=== PATIENT | female | born 1970 | race Caucasian/White ===

== ENCOUNTER 2016-11-23 14:30 | Emergency (ER) | payer BC, OTHER ==
--- NOTE | 2016-11-23 14:54 | ER Document Report ---
ED Medical Screen (RME) - General Stated Complaint: DIZZINESS Time seen by provider: 14:52 Mode of Arrival: Ambulatory Information source: Patient Notes: 46-year-old female woke up at 7:00 this morning when she got out of bed she had sudden onset of vertigo that caused her to fall forward and hit the bridge of for joint nose. She continues to have vertigo today. She has not been sick recently. Hysterectomy. No headache. Dry heaving and vomiting since noon. No diarrhea. TRAVEL OUTSIDE OF THE [place] IN LAST 30 DAYS: No Physical Exam - Vital signs Vitals: Temp Pulse Resp BP Pulse Ox 97.4 F 95 18 145/92 H 100 11/23/16 14:34 11/23/16 14:34 11/23/16 14:34 11/23/16 14:34 11/23/16 14:34 Course - Vital Signs Vital signs: Temp Pulse Resp BP Pulse Ox 97.4 F 95 18 145/92 H 100 11/23/16 14:34 11/23/16 14:34 11/23/16 14:34 11/23/16 14:34 11/23/16 14:34
[2016-11-23] MEDS ORDERED: MECLIZINE HCL 25 MG TABLET PO ONE (14:59)
[2016-11-23] MEDS ORDERED: NORMAL SALINE 1000 ML 1,000 ML IV ONE (18:30)
[2016-11-23] MEDS ORDERED: DIAZEPAM 5 MG TABLET PO ONE (18:31)
[2016-11-23] MEDS ORDERED: ONDANSETRON HCL INJ/PF 4 MG/2 ML SDV IV ONE (18:31)
--- NOTE | 2016-11-23 18:32 | ER Document Report ---
ED Dizziness/Weakness - General Chief Complaint: Dizziness Stated Complaint: DIZZINESS Mode of Arrival: Ambulatory Information source: Patient Notes: This is a 46-year-old female with a past medical history significant for asthma who presents with dizziness and vertigo for one day. She states that her symptoms began at 7 AM this morning when she got out of bed. She felt so dizzy that she actually did fall in the bathroom and has a small laceration to the bridge of her nose. She has no loss of consciousness. She has fallen again today. She continues to have persistent vertigo with position change along with nausea vomiting. This has never happened to her before. She denies any recent illnesses or fevers. She otherwise feels well. TRAVEL OUTSIDE OF THE [place] IN LAST 30 DAYS: No - Related Data Allergies/Adverse Reactions: codeine Allergy (Verified 11/23/16 14:59) erythromycin base Allergy (Verified 11/23/16 14:59) Past Medical History - General Information source: Patient - Social History Smoking Status: Former Smoker Chew tobacco use (# tins/day): No Frequency of alcohol use: None Drug Abuse: None Family History: Reviewed & Not Pertinent Patient has suicidal ideation: No Patient has homicidal ideation: No Pulmonary Medical History: Reports: Hx Asthma Renal/ Medical History: Denies: Hx Peritoneal Dialysis Past Surgical History: Reports: Hx Appendectomy, Hx Section, Hx Tonsillectomy Review of Systems - Review of Systems Notes: REVIEW OF SYSTEMS: CONSTITUTIONAL : Denies fever, chills, or sweats. Denies recent illness. EENT: Denies eye, ear, throat, or mouth pain or symptoms. Denies nasal or sinus congestion. CARDIOVASCULAR: Denies chest pain. RESPIRATORY: Denies cough, cold, or chest congestion. Denies shortness of breath, difficulty breathing, or wheezing. GASTROINTESTINAL: Denies abdominal pain. GENITOURINARY: Denies difficulty urinating, painful urination, burning, frequency, or blood in urine. MUSCULOSKELETAL: Denies neck or back pain or joint pain or swelling. SKIN: Denies rash or skin lesions. HEMATOLOGIC : Denies easy bruising or bleeding. LYMPHATIC: Denies swollen, enlarged glands. NEUROLOGICAL: As per history of present illness. Denies headache. Denies weakness or paralysis or loss of use of either side. Denies sensory or motor loss. PSYCHIATRIC: Denies anxiety or stress or depression. ALL OTHER SYSTEMS REVIEWED AND NEGATIVE. Physical Exam - Vital signs Vitals: Temp Pulse Resp BP Pulse Ox 97.4 F 95 18 145/92 H 100 11/23/16 14:34 11/23/16 14:34 11/23/16 14:34 11/23/16 14:34 11/23/16 14:34 - Notes Notes: PHYSICAL EXAMINATION: GENERAL: Well-appearing, well-nourished and in no acute distress. Pleasant and conversant. HEAD: Atraumatic, normocephalic. EYES: Pupils equal round and reactive to light, extraocular movements intact, sclera anicteric, conjunctiva are normal. No nystagmus noted. ENT: nares patent, oropharynx clear without exudates. Moist mucous membranes. NECK: Normal range of motion, supple without lymphadenopathy LUNGS: Breath sounds clear to auscultation bilaterally and equal. No wheezes rales or rhonchi. HEART: Regular rate and rhythm without murmurs ABDOMEN: Soft, nontender, normoactive bowel sounds. No guarding, no rebound. No masses appreciated. EXTREMITIES: Normal range of motion, no pitting or edema. No cyanosis. NEUROLOGICAL: Cranial nerves grossly intact. Normal speech. Motor strength is 5/5 bilateral upper and lower extremities. Sensation intact. Finger to nose intact. PSYCH: Normal mood, normal affect. SKIN: Warm, Dry, normal turgor, no rashes or lesions noted. Course - Re-evaluation Re-evalutation: 11/23/16 21:29 Patient states that she is feeling somewhat better after the by mouth Valium. Her neuro exam he continues to be intact and nonfocal. She was noted to be able to ambulate to the bathroom and back without difficulty. He has not vomited in the emergency department. Her labs and CT are reassuring. We discussed benign positional vertigo and treatments. She will follow-up with her primary care physician this week and strict return precautions were discussed. She and her are very comfortable with the plan and all questions were answered. - Vital Signs Vital signs: Temp Pulse Resp BP Pulse Ox 98.2 F 72 16 136/75 H 98 11/23/16 22:32 11/23/16 22:32 11/23/16 22:32 11/23/16 22:32 11/23/16 22:32 - Laboratory Result Diagrams: 11/23/16 19:15 11/23/16 19:15 Laboratory results interpreted by me: 11/23/16 11/23/16 19:15 19:15 RDW 14.1 H Calcium 10.3 H Discharge - Discharge Clinical Impression: Vertigo Clinical Impression: (Ruled Out): Benign paroxysmal positional vertigo Condition: Stable Disposition: HOME, SELF-CARE Additional Instructions: Vertigo You have experienced an episode of vertigo -- a whirling dizziness which may be accompanied by nausea and vomiting or staggering. Vertigo is often caused by an irritation of the inner ear, in which case it is called labyrinthitis. It can also be a symptom of a degenerating inner ear, nerve damage, or brain injury. Your physician has evaluated you to determine whether any further testing is necessary. Vertigo is often treated with dramamine or meclizine. These medications are helpful, but stronger medication may be needed if you are vomiting. Rest in bed. You should not drive or operate machinery until completely better. It may take one to three weeks for recovery. If there are new symptoms, such as decreased hearing or vision, severe headache, weakness or faintness, or confusion, call the physician. As instructed and discussed, follow-up with her primary care physician this week. Return to the ER for any worsening symptoms or concerns specifically fever, severe headache, or worsening problems. Prescriptions: Diazepam [Valium 5 mg Tablet] 5 mg PO BID #8 tablet Meclizine HCl 25 mg PO TID PRN #20 tablet PRN Reason: vertigo Ondansetron [Zofran Odt 4 mg Tablet] 1 tab PO Q4H PRN #15 tab.rapdis PRN Reason: For Nausea/Vomiting Forms: Elevated Blood Pressure Referrals: JOYCE CASTILLO MD [Primary Care Provider] - Follow up in 3-5 days
[2016-11-23 19:24] LABS: ABSOLUTE EOSINOPHILS # (AUTO) 0.1 10^3/uL (0.0-0.6); ABSOLUTE LYMPHOCYTES (AUTO) 1.8 10^3/uL (0.5-4.7); ABSOLUTE MONOCYTES (AUTO) 0.6 10^3/uL (0.1-1.4); ABSOLUTE NEUT (AUTO) 7.5 10^3/uL (1.7-8.2); BASOPHILS % (AUTO) 0.5 % (0-2); EOSINOPHILS % (AUTO) 0.5 % (0-6); HEMATOCRIT 43.9 % (36.0-47.0); HEMOGLOBIN 14.7 g/dL (12.0-15.5); HGB HCT DIFFERENCE 0.2; LYMPHOCYTES % (AUTO) 17.5 % (13-45); MEAN CORPUSCULAR HEMOGLOBIN 29.2 pg (27.0-33.4); MEAN CORPUSCULAR HGB CONC 33.5 g/dL (32.0-36.0); MEAN CORPUSCULAR VOLUME 87 fl (80-97); MONOCYTES % (AUTO) 6.2 % (3-13); RED BLOOD COUNT 5.03 10^6/uL (3.72-5.28); RED CELL DISTRIBUTION WIDTH 14.1 % (11.5-14.0); SEGMENTED NEUTROPHILS % (AUTO) 75.3 % (42-78)
[2016-11-23 19:39] LABS: ALANINE AMINOTRANSFERASE 31 U/L (9-52); ALBUMIN 4.6 g/dL (3.5-5.0); ALKALINE PHOSPHATASE 110 U/L (38-126); ANION GAP 10 (5-19); ASPARTATE AMINO TRANSFERASE 36 U/L (14-36); BILIRUBIN,TOTAL 0.7 mg/dL (0.2-1.3); BLOOD UREA NITROGEN 15 mg/dL (7-20); CALCIUM 10.3 mg/dL (8.4-10.2); CARBON DIOXIDE 29 mmol/L (22-30); CHLORIDE 105 mmol/L (98-107); CREATININE RESULT 0.57 mg/dL (0.52-1.25); GLUCOSE 105 mg/dL (75-110); POTASSIUM 4.2 mmol/L (3.6-5.0); SODIUM 143.8 mmol/L (137-145); TOTAL PROTEIN 7.9 g/dL (6.3-8.2)
[2016-11-23 22:34] VITALS: BP 136/75
--- NOTE | 2016-11-23 22:44 | EKG REPORT ---
SEVERITY:- NORMAL ECG - SINUS RHYTHM : Confirmed by: Reagan Mei 23-Nov-2016 22:43:51
== END 2016-11-23 22:36 | disposition home or self-care (01) ==
LOC: ER 14:30
DX: S01.21XA Laceration without foreign body of nose, initial encounter (principal); W19.XXXA Unspecified fall, initial encounter; Y93.89 Activity, other specified; R42 Dizziness and giddiness; R11.2 Nausea with vomiting, unspecified; J45.909 Unspecified asthma, uncomplicated; Z88.5 Allergy status to narcotic agent; Z88.1 Allergy status to other antibiotic agents; Z87.891 Personal history of nicotine dependence
CPT/HCPCS: 93005; 99284; 96374; 36415; 85025; 80053; 70450; 93010; J2405; J7030

== ENCOUNTER 2017-05-16 15:49 | Observation (INO) | payer BC ==
[~2017-05-16 15:49] MED LIST: DEXAMETHASONE SOD PHOSPHATE INJ 4 MG/1 ML VIAL ONE; GLYCOPYRROLATE INJ 0.4 MG/2 ML VIAL ONE; NEOSTIGMINE METHYLSULFATE 10 MG/10 ML VIAL ONE; ONDANSETRON HCL INJ/PF 4 MG/2 ML SDV ONE; SUCCINYLCHOLINE CHLORIDE INJ 200 MG/10 ML VIAL ONE; VECURONIUM BROMIDE INJ 10 MG VIAL IV ONE
[2017-05-16] MEDS ORDERED: ASPIRIN 81 MG TABLET, CHEWABLE PO ONE (16:33)
--- NOTE | 2017-05-16 16:34 | ER Document Report ---
ED Medical Screen (RME) - General Chief Complaint: Chest Pain Stated Complaint: CHEST PAIN Time Seen by Provider: 05/16/17 16:32 Notes: Patient presents with substernal chest pain. It is been present intermittently for approximately 3 days. She states she is currently having pain. She denies any previous history of coronary artery disease. No previous evaluation such as stress test or heart catheterizations. No history of blood clots. No hormone use. Patient denies tobacco use. No cough cold or congestion. Patient denies shortness of breath. She has had some nausea. TRAVEL OUTSIDE OF THE [place] IN LAST 30 DAYS: No - Related Data Allergies/Adverse Reactions: codeine Allergy (Verified 05/16/17 16:12) erythromycin base Allergy (Verified 05/16/17 16:12) Home Medications: Current Home Medications Albuterol Sulfate [Ventolin Hfa] 2 puff IH DAILY 05/16/17 [History] Fluticasone/Vilanterol [Breo Ellipta 100-25 Mcg INH] 1 puff IH DAILY 05/16/17 [ History] Hydrochlorothiazide [Hydrochlorothiazide] 25 mg PO DAILY 05/16/17 [History] Meloxicam [Mobic 15 mg Tablet] 15 mg PO QID 05/16/17 [History] Naproxen [Naproxen] 500 mg PO DAILY PRN 05/16/17 [History] Phentermine HCl 37.5 mg PO QAM 05/16/17 [History] Past Medical History Pulmonary Medical History: Reports: Hx Asthma Renal/ Medical History: Denies: Hx Peritoneal Dialysis Past Surgical History: Reports: Hx Appendectomy, Hx Section, Hx Hysterectomy, Hx Tonsillectomy
[2017-05-16 17:19] LABS: ABSOLUTE EOSINOPHILS # (AUTO) 0.3 10^3/uL (0.0-0.6); ABSOLUTE NEUT (AUTO) 9.4 10^3/uL (1.7-8.2); BASOPHILS % (AUTO) 0.4 % (0-2); EOSINOPHILS % (AUTO) 2.1 % (0-6); HEMATOCRIT 44.4 % (36.0-47.0); HEMOGLOBIN 15.3 g/dL (12.0-15.5); HGB HCT DIFFERENCE 1.5; LYMPHOCYTES % (AUTO) 15.5 % (13-45); MEAN CORPUSCULAR HEMOGLOBIN 29.6 pg (27.0-33.4); MEAN CORPUSCULAR HGB CONC 34.4 g/dL (32.0-36.0); MEAN CORPUSCULAR VOLUME 86 fl (80-97); MONOCYTES % (AUTO) 7.6 % (3-13); RED BLOOD COUNT 5.17 10^6/uL (3.72-5.28); RED CELL DISTRIBUTION WIDTH 14.1 % (11.5-14.0); SEGMENTED NEUTROPHILS % (AUTO) 74.4 % (42-78); WHITE BLOOD COUNT 12.6 10^3/uL (4.0-10.5)
--- NOTE | 2017-05-16 17:52 | RADIOLOGY REPORT (SQ) ---
EXAM DESCRIPTION: CHEST PA/LAT COMPLETED DATE/TIME: 05/16/2017 5:05 pm REASON FOR STUDY: cp COMPARISON: 07/04/2015 EXAM PARAMETERS: NUMBER OF VIEWS: two views TECHNIQUE: Digital Frontal and Lateral radiographic views of the chest acquired. RADIATION DOSE: NA LIMITATIONS: none FINDINGS: LUNGS AND PLEURA: No opacities, masses or pneumothorax. No pleural effusion. MEDIASTINUM AND HILAR STRUCTURES: No masses or contour abnormalities. HEART AND VASCULAR STRUCTURES: Heart normal size. No evidence for failure. BONES: No acute findings. HARDWARE: None in the chest. OTHER: No other significant finding. IMPRESSION: NO SIGNIFICANT RADIOGRAPHIC FINDING IN THE CHEST. TECHNICAL DOCUMENTATION: JOB ID: [id number] [employer]- All Rights Reserved
[2017-05-16 18:30] LABS: BLOOD UREA NITROGEN 18 mg/dL (7-20); CALCIUM 9.8 mg/dL (8.4-10.2); GLUCOSE 122 mg/dL (75-110)
[2017-05-16 18:31] LABS: ALBUMIN 4.3 g/dL (3.5-5.0); ANION GAP 9 (5-19); CARBON DIOXIDE 28 mmol/L (22-30); CHLORIDE 101 mmol/L (98-107); POTASSIUM 3.6 mmol/L (3.6-5.0); SODIUM 138.2 mmol/L (137-145)
[2017-05-16 18:32] LABS: ALANINE AMINOTRANSFERASE 23 U/L (9-52); ALKALINE PHOSPHATASE 109 U/L (38-126); ASPARTATE AMINO TRANSFERASE 32 U/L (14-36); BILIRUBIN,DIRECT 0.5 mg/dL (0.0-0.4); BILIRUBIN,TOTAL 0.5 mg/dL (0.2-1.3)
[2017-05-16 18:33] LABS: TOTAL PROTEIN 7.4 g/dL (6.3-8.2)
[2017-05-16] MEDS ORDERED: NORMAL SALINE 1000 ML 1,000 ML IV PRN (18:51)
[2017-05-16] MEDS ORDERED: MORPHINE SULFATE 10 MG/ML INJ IV ONE (18:51)
[2017-05-16] MEDS ORDERED: ONDANSETRON HCL INJ/PF 4 MG/2 ML SDV IV ONE (18:51)
--- NOTE | 2017-05-16 20:46 | RADIOLOGY REPORT (SQ) ---
EXAM DESCRIPTION: U/S ABDOMEN LIMITED W/O DOP COMPLETED DATE/TIME: 05/16/2017 8:30 pm REASON FOR STUDY: pain COMPARISON: None. TECHNIQUE: Dynamic and static grayscale images acquired of the abdomen and recorded on PACS. Additio nal selected color Doppler and spectral images recorded. LIMITATIONS: None. FINDINGS: PANCREAS: No masses. Visualized pancreatic duct normal caliber. LIVER: No masses. Echotexture normal. LIVER VASCULATURE: Normal directional flow of the main portal vein and hepatic veins. GALLBLADDER: Extensive stones and sludge. Borderline thickening of the gallbladder wall. ULTRASOUND-DETECTED WAKEFIELD'S SIGN: Negative. INTRAHEPATIC DUCTS AND COMMON DUCT: CBD and intrahepatic ducts normal caliber. No filling defects. INFERIOR VENA CAVA: Normal flow. AORTA: No aneurysm. RIGHT KIDNEY: Normal size. Normal echogenicity. No solid or suspicious masses. No hydronephrosis. No calcifications. PERITONEAL AND RIGHT PLEURAL SPACE: No ascites or effusions. OTHER: No other significant findings. IMPRESSION: Extensive stones and sludge in the gallbladder. TECHNICAL DOCUMENTATION: JOB ID: [id number] [employer]- All Rights Reserved
[2017-05-16] MEDS ORDERED: ONDANSETRON HCL INJ/PF 4 MG/2 ML SDV IV PRN (20:47)
--- NOTE | 2017-05-16 21:26 | ER Document Report ---
ED GI/ - General Chief Complaint: Chest Pain Stated Complaint: CHEST PAIN Time Seen by Provider: 05/16/17 16:32 TRAVEL OUTSIDE OF THE [place] IN LAST 30 DAYS: No - HPI Patient complains to provider of: Abdominal pain Onset: Other - 2-3 days Timing/Duration: Persistent Quality of pain: Sharp Severity at maximum: Moderate Severity in ED: Moderate Pain Level: 4 Location: Epigastric, RUQ Associated symptoms: Nausea, Vomiting Exacerbated by: Denies Relieved by: Denies Similar symptoms previously: No Recently seen / treated by doctor: No Notes: 05/17/17 00:56 Patient is a 46-year-old female presenting to the emergency room complaining of 2 day history of chest pain, however when I ask her where the pain is she points to the epigastric area, 2 days ago she had nausea and vomiting and thought the pain was related to that, today she continues to have nausea but no vomiting, denies a fever, denies shortness of breath but does report feeling pain when she takes a deep breath - Related Data Allergies/Adverse Reactions: codeine Allergy (Verified 05/16/17 16:12) erythromycin base Allergy (Verified 05/16/17 16:12) Home Medications: Current Home Medications Albuterol Sulfate [Ventolin Hfa] 2 puff IH DAILY 05/16/17 [History] Fluticasone/Vilanterol [Breo Ellipta 100-25 Mcg INH] 1 puff IH DAILY 05/16/17 [ History] Hydrochlorothiazide [Hydrochlorothiazide] 25 mg PO DAILY 05/16/17 [History] Meloxicam [Mobic 15 mg Tablet] 15 mg PO QID 05/16/17 [History] Naproxen [Naproxen] 500 mg PO DAILY PRN 05/16/17 [History] Phentermine HCl 37.5 mg PO QAM 05/16/17 [History] Past Medical History - General Information source: Patient - Social History Smoking Status: Never Smoker Frequency of alcohol use: Occasional Family History: Reviewed & Not Pertinent - Past Medical History Cardiac Medical History: Reports: Hx Hypertension Pulmonary Medical History: Reports: Hx Asthma Renal/ Medical History: Denies: Hx Peritoneal Dialysis Past Surgical History: Reports: Hx Appendectomy, Hx Section, Hx Hysterectomy, Hx Tonsillectomy Review of Systems - Review of Systems Constitutional: No symptoms reported EENT: No symptoms reported Cardiovascular: No symptoms reported Respiratory: No symptoms reported Gastrointestinal: See HPI Genitourinary: No symptoms reported Female Genitourinary: No symptoms reported Musculoskeletal: No symptoms reported Skin: No symptoms reported Hematologic/Lymphatic: No symptoms reported Neurological/Psychological: No symptoms reported -: Yes All other systems reviewed and negative Physical Exam - Vital signs Vitals: Temp Pulse Resp BP Pulse Ox 97.8 F 92 16 99/68 L 98 05/16/17 20:57 05/16/17 20:57 05/16/17 20:57 05/16/17 20:57 05/16/17 20:57 Interpretation: Normal - General General appearance: Appears well, Alert - HEENT Head: Normocephalic, Atraumatic Eyes: Normal Pupils: PERRL - Respiratory Respiratory status: No respiratory distress Chest status: Nontender Breath sounds: Normal Chest palpation: Normal - Cardiovascular Rhythm: Regular Heart sounds: Normal auscultation Murmur: No - Abdominal Inspection: Obese Distension: No distension Bowel sounds: Normal Tenderness: Tender - Right upper quadrant Organomegaly: No organomegaly - Back Back: Normal, Nontender - Extremities General upper extremity: Normal inspection, Nontender, Normal color, Normal ROM , Normal temperature General lower extremity: Normal inspection, Nontender, Normal color, Normal ROM , Normal temperature, Normal weight bearing. No: Chas's sign - Neurological Neuro grossly intact: Yes Cognition: Normal Orientation: AAOx4 Laurie Coma Scale Eye Opening: Spontaneous Laurie Coma Scale Verbal: Oriented [place] Coma Scale Motor: Obeys Commands Laurie Coma Scale Total: 15 Speech: Normal Motor strength normal: LUE, RUE, LLE, RLE Sensory: Normal - Psychological Associated symptoms: Normal affect, Normal mood - Skin Skin Temperature: Warm Skin Moisture: Dry Skin Color: Normal Course - Re-evaluation Re-evalutation: 05/17/17 00:57 Patient symptoms are consistent with likely biliary colic, she has mild leukocytosis and ultrasound shows extensive gallstones, patient was discussed with the surgical list who agrees to admit for further evaluation and treatment - Vital Signs Vital signs: Temp Pulse Resp BP Pulse Ox 97.3 F 89 15 139/84 H 99 05/16/17 22:44 05/16/17 22:44 05/16/17 22:44 05/16/17 22:44 05/16/17 22:44 - Laboratory Result Diagrams: 05/16/17 16:58 05/16/17 17:52 Laboratory results interpreted by me: 05/16/17 05/16/17 16:58 17:52 WBC 12.6 H RDW 14.1 H Absolute Neutrophils 9.4 H Glucose 122 H Direct Bilirubin 0.5 H - Diagnostic Test Radiology reviewed: Image reviewed, Reports reviewed - EKG Interpretation by Me EKG shows normal: Sinus rhythm Rate: Tachycardia Discharge - Discharge Clinical Impression: Gallstones Condition: Stable Disposition: ADMITTED INPATIENT Admitting Provider: Surgicalist Unit Admitted: Surgical Floor
[2017-05-16] MEDS ORDERED: LORAZEPAM INJ 2 MG/1 ML VIAL IV ONE (22:03)
--- NOTE | 2017-05-16 23:17 | EKG REPORT ---
SEVERITY:- BORDERLINE ECG - SINUS TACHYCARDIA PROBABLE LEFT ATRIAL ABNORMALITY BORDERLINE LEFT AXIS DEVIATION : Confirmed by: Reagan Mei 16-May-2017 23:17:10
[2017-05-16] MEDS: HYDROMORPHONE HCL INJ/PF 2 MG/ML AMPULE IV PRN (23:30)
--- NOTE | 2017-05-17 00:17 | HISTORY AND PHYSICAL E ---
History and Physical NAME: PETER SWARTZ : 1970 AGE: 46Y ADMITTED: 05/16/2017 ROOM: 425 REASON FOR ADMISSION: Suspected biliary colic secondary to cholelithiasis with pending ultrasound. HISTORY OF PRESENT ILLNESS: This 46-year-old female presented to the emergency room complaining of a 3 days history of right upper quadrant and epigastric and substernal pain that actually worsened yesterday after eating a jalapeno. The patient states that the pain began approximately 3 days but was not very intense until last night when it became 8-9/10 in intensity. The patient states that the pain had gotten so intense that it made her sick, but she had some nausea but no vomiting. The patient denies any fever or chills. The patient states that approximately around 04/28, she had similar symptoms but when seen by primary care physician she told her it was chest wall related. The patient came to our emergency room today complaining of this pain which is 8-9/10 in intensity with radiation to her upper mid back. The patient denies any choluria, acholic stools, or jaundice and upon being seen by the emergency room provider, Dr. Cristela Navarrete it was thought that this represented biliary colic. The patient is now undergoing ultrasound of the gallbladder. PAST MEDICAL HISTORY: The patient has a history of asthma and is on albuterol sulfate 2 puffs daily and she is on fluticasone, vilanterol 1 puff daily. The patient is also on hydrochlorothiazide 25 mg p.o. daily, meloxicam 15 mg p.o. q.i.d., naproxen 500 mg p.o. daily, and phentermine hydrochloride 37.5 mg p.o. q.a.m. for weight loss. PAST SURGICAL HISTORY: The patient had apparently, section, hysterectomy, and history of tonsillectomy. ALLERGIES: The patient is allergic to CODEINE and ERYTHROMYCIN BASE. REVIEW OF SYSTEMS: The patient has no symptoms referable to the ear, nose and throat, cardiovascular, genitourinary, musculoskeletal, integumentary, lymphatic, endocrine. No psychiatric systems. Gastrointestinal symptoms as in the History of Present Illness. Pulmonary problems as in the History of the Present Illness. PHYSICAL EXAMINATION: GENERAL: Reveals a 46-year-old female who is normally nourished, normally developed, moderately obese at BMI of 45, who is in mild distress. VITAL SIGNS: Are noted and stable. HEENT: There is no conjunctival pallor or scleral icterus. Mucous membranes are moist and pink. NECK: Supple without nodes, masses, thyroid, JVD, or bruits and trachea is midline. CHEST WALL: Shows good excursions. The lungs are clear anteriorly with good entry bilaterally. CARDIOVASCULAR: S1 and S2 are audible without murmurs or gallops. ABDOMEN: Obese, soft with epigastric and right upper quadrant tenderness with mild guarding. There is negative Sandra's sign. There are no hernias or bruits noted. No incisions are noted. There are no hernias. EXTREMITIES: Show full range of motion. LABORATORY DATA: Is reviewed. Her white count is 12.6 mildly elevated, hemoglobin and hematocrit are within normal limits. The patient's liver function studies are essentially within normal limits. IMAGING STUDIES: Ultrasound is pending. IMPRESSION: Abdominal pain, suspected to be biliary colic. PLAN: Ultrasound is presently being done. Should this be negative then the patient will be scheduled for a HIDA scan with CCK stimulation. DICTATING PHYSICIAN: SINAN TONEY M.D. [id number] PHY#: [id number] ID: [id number] JOB#: [id number] ACCT: [id number] cc:SINAN TONEY M.D. >
[2017-05-17] MEDS: HYDROMORPHONE HCL INJ/PF 2 MG/ML AMPULE IV PRN (02:56)
[2017-05-17] MEDS ORDERED: BUPIVACAINE HCL 0.5 % INJ/PF 30 ML SDV ONE (08:00)
[2017-05-17] MEDS: NORMAL SALINE 1000 ML 1,000 ML IV PRN ×2 (08:31→16:10)
[2017-05-17] MEDS ORDERED: CEFAZOLIN INJ 1 GM VIAL ONE (09:55)
[2017-05-17] MEDS ORDERED: ENOXAPARIN SODIUM INJ 40 MG/0.4 ML DISP.SYRIN SUBCUT SCH (10:00)
[2017-05-17] MEDS ORDERED: ALBUTEROL SULFATE HFA (90 MCG/PUFF) 8 GM MDI (1 MDI/ER DISP) IH SCH (10:00)
[2017-05-17] MEDS ORDERED: (PENDING PHARMACY ID) (Fluticasone/Vilanterol [Breo Ellipta 100-25 Mcg Inh] 1 PUFF) IH SCH (10:00)
[2017-05-17] MEDS ORDERED: FENTANYL CITRATE INJ/PF 100 MCG/2 ML AMPUL ONE (10:10)
[2017-05-17] MEDS ORDERED: FENTANYL CITRATE INJ/PF 250 MCG/5 ML AMPULE ONE (10:10)
[2017-05-17] MEDS ORDERED: PROPOFOL INJ 200 MG/20 ML VIAL IV ONE (10:11)
[2017-05-17] MEDS ORDERED: MIDAZOLAM 2 MG/2 ML INJ ONE (10:11)
[2017-05-17] MEDS ORDERED: ACETAMINOPHEN 100 ML IV ONE (10:11)
[2017-05-17] MEDS ORDERED: MORPHINE SULFATE 10 MG/ML INJ IV PRN ×2 (11:12→12:12)
[2017-05-17] MEDS ORDERED: PROMETHAZINE HCL INJ 25 MG/1 ML VIAL IV PRN (11:12)
[2017-05-17] MEDS ORDERED: DIPHENHYDRAMINE HCL 50 MG/ML VIAL IV PRN (11:12)
[2017-05-17] MEDS ORDERED: FENTANYL CITRATE INJ/PF 100 MCG/2 ML AMPUL IV PRN ×3 (11:12)
[2017-05-17] MEDS ORDERED: ONDANSETRON HCL INJ/PF 4 MG/2 ML SDV IV PRN (12:12)
--- NOTE | 2017-05-17 12:12 | Brief Operative Note ---
BRIEF OPERATIVE REPORT DATE OF SURGERY: 05/17/17 TIME OF SURGERY: 11:00 PREOPERATIVE DIAGNOSIS: Cholelithiasis with biliary colic POSTOPERATIVE DIAGNOSIS: Same plus chronic cholecystitis SURGEON: SINAN TONEY FINDINGS: Cholelithiasis with chronic cholecystitis COMPLICATIONS: None ESTIMATED BLOOD LOSS: 50 cc TISSUE REMOVED OR ALTERED: Gallbladder and contents TECHNICAL PROCEDURE: See Dictation
[2017-05-17] MEDS ORDERED: OXYCODONE-ACETAMINOPHEN 5-325 MG TABLET PO PRN (12:17)
--- NOTE | 2017-05-17 12:42 | OPERATIVE REPORT E ---
Operative Report NAME: PETER SWARTZ : 1970 AGE: 46Y DATE OF SURGERY: 05/17/2017 ROOM: 425 PREOPERATIVE DIAGNOSES: 1. Cholelithiasis. 2. Biliary colic. POSTOPERATIVE DIAGNOSES: 1. Cholelithiasis. 2. Biliary colic. 3. Chronic cholecystitis. PROCEDURE: Laparoscopic cholecystectomy. SURGEON: SINAN TONEY M.D. ANESTHESIA: General. REPLACEMENT: Crystalloids. DRAINS: None. COMPLICATIONS: None. CONDITION: Stable. INDICATIONS FOR PROCEDURE: This 46-year-old female presented to the emergency room on 05/16/2017 complaining of a several hour attack of biliary colic that had lasted approximately 5-7 hours. Patient complained of significant epigastric, substernal, and right upper quadrant pain radiating to the back with nausea without vomiting. Patient's symptoms go back to approximately 2 weeks ago when she had her first attack. Ultrasound revealed cholelithiasis with sludge and multiple gallstones. The patient is brought to the operating room now for definitive intervention. DESCRIPTION OF PROCEDURE: The patient was brought to the operating room suite and placed in the supine position on the operating room table. Monitoring devices were attached. IV sedation was administered followed by the induction of general endotracheal anesthesia. Patient's abdomen was prepped and draped in usual sterile manner and then a timeout was achieved. After all concurred, local anesthesia, which was Marcaine 0.5% with epinephrine was injected just below the umbilicus and then a curvilinear incision was made just below the umbilicus through skin and subcutaneous tissue down to the linea alba. Two 0 Vicryl stay sutures were placed in the linea alba and then an incision was made between the 2 stay sutures. We then, after opening the linea alba, grasped the peritoneum with 2 hemostats and an incision was made between the 2 hemostats thereby making an opening into the peritoneal cavity. Additional exploration was done to ensure there were no viscera adherent to the anterior abdominal wall. We then instilled our 10 mm Venancio trocar and secured it with the two 0 Vicryl stay sutures. We then insufflated the abdomen with CO2 and then inserted our laparoscopic camera and light source. The remaining 3 trocars were placed in the usual anatomic position. It should be noted that the gallbladder was markedly distended and tense. There also were adhesions between the liver and the anterior abdominal wall or possibly secondary to Chris-Jeremy adhesions. We took down the adhesions between the liver and the anterior abdominal wall and then we decompressed the gallbladder, suctioning out approximately 75 feet of dark, thickened bile. After decompression of the gallbladder, we grasped the fundus of the gallbladder and retracted it superiorly over the liver. We then took down the adhesions between the omentum and the gallbladder and dissected there to the lower infundibulum until we identified the cystic duct. Using blunt and sharp dissection, we exposed, skeletonized, and isolated the cystic duct and this was then Hemoclipped close to the gallbladder and divided. We then identified the cystic artery and this was skeletonized and isolated and this was doubly Hemoclipped and divided between Hemoclips. We then dissected the gallbladder off the liver using the *------* scissors and cautery and hemostasis was accomplished using the cautery. Once the gallbladder was disconnected from the liver, it was placed in the Endobag and removed from the abdominal cavity. We then placed Surgicel in the gallbladder bed for the oozing of blood, which was minimal. After showing adequate hemostasis, we then placed our 0 Vicryl tie at the 10 mm trocar site in the upper abdomen using the Guero-Patel device, and once the 2 sutures were used to close the defect successfully, we then removed all trocars under direct vision and decompressed the abdomen. The infraumbilical trocar site was approximated using 0 Vicryl on a *------* needle in a continuous manner, and once all fascial defects were closed, all skin incisions were then closed using skin qian. The patient tolerated the procedure well. Sponge and instrument count was correct and patient was discharged to the PACU in stable condition. DICTATING PHYSICIAN: SINAN TONEY M.D. [id number] PHY#: [id number] ID: [id number] JOB#: [id number] ACCT: [id number] cc:SINAN TONEY M.D. >
[2017-05-18 08:20] VITALS: BP 135/79
--- NOTE | 2017-05-18 15:30 | DISCHARGE SUMMARY E ---
Discharge Summary NAME: PETER SWARTZ : 1970 AGE: 46Y ADMITTED: 05/16/2017 DISCHARGED: 05/18/2017 DISCHARGE DIAGNOSIS: Status post laparoscopic cholecystectomy for cholelithiasis with biliary colic and chronic cholecystitis. HOSPITAL COURSE: This 46-year-old female was admitted to the hospital on 05/16/2017 complaining of a several-hour history of right upper quadrant pain going to her back. The patient had her first significant attack approximately 2 weeks ago which resolved spontaneously. The patient was seen in the emergency room on 05/16/2017 where she was found to have marked right upper quadrant tenderness with guarding and positive Sandra sign. The patient underwent ultrasound which showed multiple stones and sludge in the gallbladder. The patient was taken to the operating room on 05/17/2017 where she underwent an uneventful laparoscopic cholecystectomy. The patient's postop course was uneventful. She was started on diet immediately postop and it was tolerated well. At this time the patient is afebrile, vital signs are stable, abdomen is soft with mild incisional tenderness, incisions are clean, dry, and intact, she is tolerating her meals, and bowel function is normal. The patient is now discharged home on Percocet 20 tabs, 1 every 4 hours p.r.n. She is to return to [facility] in 7-10 days and has been instructed to avoid heavy lifting, pulling or pushing for 2 weeks, she can shower and bathe, and she can drive when pain free. DICTATING PHYSICIAN: SINAN TONEY M.D. [id number] PHY#: [id number] ID: [id number] JOB#: [id number] ACCT: [id number] cc:Rene MUSA M.D. >
== END 2017-05-18 09:42 | disposition home or self-care (01) ==
LOC: ER 15:49 → EH 20:47 → INTOOBSV 21:34 → UNDOADMOB 21:34 → EH 21:34 → 4S 22:40
PROVIDERS: ATTEND Surgery
PROC: 0FT44ZZ Resection of Gallbladder, Percutaneous Endoscopic Approach (ICD-10-PCS; principal; 2017-05-17 10:30)
DX: K80.00 Calculus of gallbladder with acute cholecystitis without obstruction (principal); J45.909 Unspecified asthma, uncomplicated; E66.9 Obesity, unspecified; I10 Essential (primary) hypertension; Z79.899 Other long term (current) drug therapy; Z90.710 Acquired absence of both cervix and uterus; Z68.42 Body mass index [BMI] 45.0-49.9, adult
CPT/HCPCS: 93005; 99285; 96374; 96375; 36415; 85025; 80053; 84484; 88304 ×2; 71020; 76705; 93010; 47562; G0378 ×4; J2250; J0690; J1100; J3010; J3490; J2270; J1170 ×2; J2060; J0330; J2405; J7030 ×2; J2704; J0131; 790

== ENCOUNTER → 2017-06-29 | Outpatient (CLI) | payer BC ==
--- NOTE | 2017-06-29 14:19 | WOMENS IMAGING REPORT ---
EXAM DESCRIPTION: BILAT SCREENING MAMMO W/CAD COMPLETED DATE/TIME: 06/29/2017 2:00 pm REASON FOR STUDY: SCREENING MAMMO Z12.31 ENCNTR SCREEN MAMMOGRAM FOR MALIGNANT NEOPLASM OF PHILIPPE COMPARISON: 07/05/2011 TECHNIQUE: Standard craniocaudal and mediolateral oblique views of each breast recorded using digita l acquisition. LIMITATIONS: None. FINDINGS: No masses, calcifications or architectural distortion. No areas of suspicion. Read with the assistance of CAD. .[facility] - R2 Cenova Version 1.3 .[facility] - R2 Cenova Version 1.3 .[facility] - R2 Cenova Version 2.4 .[facility] [place] - R2 Cenova Version 2.4 .[facility] - R2 Crab Picker Version 9.2 IMPRESSION: NORMAL MAMMOGRAM. BIRADS 1. BREAST DENSITY: b. There are scattered areas of fibroglandular density. BIRAD: 1 NEGATIVE RECOMMENDATION: ROUTINE SCREENING PLEASE CONSIDER BILATERAL SCREENING TOMOSYNTHESIS IN JUNE 2018 COMMENT: The patient has been notified of the results by letter per SA requirements. Additional no tification policies are in place for contacting patient with suspicious or incomplete findings. Quality ID #225: The [employer] recommends an annual screening mammogram for women aged 40 years or over. This facility utilizes a reminder system to ensure that all patients receive reminder letters, and/or direct phone calls for appointments. This includes reminders for routine scr eening mammograms, diagnostic mammograms, or other Breast Imaging Interventions when appropriate. Th is patient will be placed in the appropriate reminder system. The [employer] ([employer]) has developed recommendations for screening MRI of the breast s in certain patient populations, to be used in conjunction with mammography. Breast MRI surveillanc e may be appropriate for women with more than 20% lifetime risk of developing breast cancer as deter mined by genetic testing, significant family history of the disease, or history of mantle radiation f or Hodgkins Disease. ACR Practice Guidelines 2008. TECHNICAL DOCUMENTATION: FINDING NUMBER: (1) ASSESSMENT: (1) JOB ID: [id number] [employer]- All Rights Reserved
== END ==
LOC: WI 13:39
PROVIDERS: ATTEND Family Medicine
DX: Z12.31 Encounter for screening mammogram for malignant neoplasm of breast (principal)
CPT/HCPCS: 77067; G0202